=== PATIENT | female | born 1940 | race Caucasian/White ===

== ENCOUNTER 2017-11-21 09:55 | Emergency (ER) | payer OTHER ==
[~2017-11-21] VITALS: Ht 149.9 cm; Wt 60.8 kg
[2017-11-21 12:50] VITALS: BP 115/56
--- NOTE | 2017-11-21 13:19 | ED GENERAL ADULT ---
History of Present Illness General Chief Complaint: Chest Pain Stated Complaint: CHEST PAIN Source: patient Exam Limitations: no limitations Vital Signs & Intake/Output Vital Signs & Intake/Output Vital Signs Date Time Temp Pulse Resp B/P B/P Pulse O2 O2 Flow FiO2 Mean Ox Delivery Rate 11/21 1250 97.6 71 16 115/56 98 Room Air Room Air 11/21 1014 96.3 60 16 138/76 97 Room Air Allergies Coded Allergies: Penicillins (Intermediate, RASH 11/21/17) lisinopril (Intermediate, COUGH 11/21/17) Reconcile Medications Alendronate Sodium 70 MG TABLET 1 TAB PO Sa BONE (Reported) in the morning, at least 30 minutes before the first food, beverage, or medication of the day Famotidine (Pepcid) 20 MG TABLET 1 TAB PO BID epigastric pain Losartan Potassium 100 MG TABLET 1 TAB PO DAILY HEART (Reported) Metoprolol Succinate 100 MG TAB.ER.24H 1 TAB PO DAILY HEART (Reported) Naproxen (Naprosyn) 500 MG TABLET 1 TAB PO BID PRN body aches Ondansetron (Zofran Odt) 4 MG TAB.RAPDIS 1 TAB SL TID PRN nausea Simvastatin (Simvastatin*) 20 MG TABLET 1 TAB PO QPM CHOLESTEROL (Reported) Triage Note: PT TO ER C/C 2 DAY HX OF "ALL OVER" BODY PAIN, INCLUDING HEADACHES AND JOINT PAIN. DENIES CHEST PAIN OR SOB. + "EXCESSIVE GAS" UNRELIEVED BY TUMS. EKG COMPLETE AT TRIAGE AND SHOWN TO DR. ANDUJAR Triage Nurses Notes Reviewed? yes Onset: Gradual Duration: day(s): Timing: constant HPI: 77 y/o female with h/o HTN, HLD, OA presenting with mylagias and arthralgias x2 days. Reports she feels "achey all over and run down." Also with intermittent epigastric discomfort, indigestion, and nausea. Able to tolerate liquid po intake, but feels nausoues with all solid po intake, no vomiting. Denies fevers, rash, insect bites, CP, SOB, diarrhea, melena, bloody stools, dysuria. No sick contacts or recent trael. Reports she had a similar episode 2 years ago, was given a white pill by [facility] that resolved all her symptoms, but is unable to recall the name. (Harini Teresita MALONEY) Past History Travel History Traveled to [place] past 21 day No Medical History Any Pertinent Medical History? see below for history Cardiovascular: hypertension, hyperlipidemia Surgical History Surgical History: non-contributory Psychosocial History What is your primary language Chilean Tobacco Use: Never used Family History Hx Contributory? No (Teresita Lai) Review of Systems Review of Systems Constitutional: Reports: no symptoms. EENTM: Reports: no symptoms. Respiratory: Reports: no symptoms. Cardiovascular: Reports: no symptoms. GI: Reports: abdominal pain, nausea. Denies: bloating, constipation, diarrhea, melena, bloody stool, vomiting. Genitourinary: Reports: no symptoms. Musculoskeletal: Reports: see HPI, joint pain, muscle pain. Denies: joint swelling, muscle stiffness. Skin: Reports: no symptoms. Neurological/Psychological: Reports: no symptoms. Hematologic/Endocrine: Reports: no symptoms. Immunologic/Allergic: Reports: no symptoms. (Teresita Lai) Physical Exam Physical Exam General Appearance: well developed/nourished, no apparent distress, alert, awake , comfortable Head: atraumatic, normal appearance Eyes: Bilateral: normal appearance. Ears, Nose, Throat: normal ENT inspection Neck: normal inspection, supple Respiratory: normal breath sounds, chest non-tender, lungs clear Cardiovascular: regular rate/rhythm Gastrointestinal: soft, non-tender Back: normal inspection Extremities: normal inspection, normal range of motion, no reproducible tenderness Neurologic/Psych: no motor/sensory deficits, awake, alert, oriented x 3, normal gait, normal mood/affect Skin: intact, normal color, warm/dry, no rashes Core Measures ACS in differential dx? Yes CVA/TIA Diagnosis: No Sepsis Present: No Sepsis Focused Exam Completed? No (Treesita Lai) Progress Differential Diagnoses I considered the following diagnoses in my evaluation of the patient: [Viral syndrome vs infection vs metabolic derangement vs thyroid imbalance vs lyme vs OA vs ACS] Plan of Care: Orders Procedure Date/time Status Add-on Test (ER Only) 11/21 1447 Active Add-on Test (ER Only) 11/21 1345 Active TSH REFLEX 11/21 1320 Complete MAGNESIUM 11/21 1320 Complete LIPASE 11/21 1320 Complete TROPONIN LEVEL 11/21 1015 Complete LYME TITRE 11/21 1015 Active COMPREHENSIVE METABOLIC PANEL 11/21 1015 Complete CBC WITHOUT DIFFERENTIAL 11/21 1015 Complete EKG 11/21 0958 Active Laboratory Tests 11/21/17 1320: Anion Gap 15, Estimated GFR > 60, BUN/Creatinine Ratio 23.3, Glucose 108 H, Calcium 10.5 H, Magnesium 2.0, Total Bilirubin 0.6, AST 16, ALT 20, Alkaline Phosphatase 75, Troponin I < 0.01, Total Protein 7.3, Albumin 4.9, Globulin 2.4, Albumin/Globulin Ratio 2.0, Lipase 174, TSH &T3 &Free T4 Intrp 1.280, CBC w Diff NO MAN DIFF REQ, RBC 4.58, MCV 96.3, MCH 31.3 H, MCHC 32.5 L, RDW 13.4, MPV 8.8, Gran % 60.6, Lymphocytes % 27.5, Monocytes % 8.2, Eosinophils % 2.6, Basophils % 1.1, Absolute Granulocytes 6.2, Absolute Lymphocytes 2.8, Absolute Monocytes 0.8 H, Absolute Eosinophils 0.3, Absolute Basophils 0.1 11/21/17 1015: Lyme Disease Antibody Pending EKG is non-ischmeic, trop neg. Labs unremarkable. Pt reports body aches have resolved after toradol. Possibly that the body aches are from her underlying OA, low concern for infectious etiology. Lyme titer pending, but not given empiric tx was concern is low, no fevers, rash, insect bites. Epigastric pain and nausea improved after zofran and GI cocktail. Able to tolerate solid po intake in ED. Likely gastritis vs GERD vs PUD. Given rx pepcid, zofran, and naproxen. Counseled to take naproxen with food to prevent worsening epigastric pain. Has appt to f/u with PMD in a week. Given strict return precautions. Disccused with Dr. Andujar. Initial ED EKG: rhythm (sinus), rate (61), RBBB (Harini MALONEY,Teresita) Departure Departure Disposition: HOME OR SELF CARE Condition: Stable Clinical Impression Primary Impression: Epigastric pain Secondary Impressions: Arthralgia, Myalgia, Nausea Referrals: Kirill MOTLEY,Augie Shay (PCP/Family) Additional Instructions: Take pepcid, zofran, and naproxen as prescribed. Be sure to take naproxen with food to prevent worsening of your abdominal pain. Maintain adequate fluid intake and eat small meals as tolerable. Follow up with your primary care provider as scheduled. Return to the emergency department for any new or worsening symptoms. Departure Forms: Customer Survey General Discharge Information Prescriptions: Current Visit Scripts Ondansetron (Zofran Odt) 1 TAB SL TID PRN nausea #20 TAB Famotidine (Pepcid) 1 TAB PO BID #60 TAB Naproxen (Naprosyn) 1 TAB PO BID PRN body aches #60 TAB (Teresita Lai) PA/DIRECTOR PRIVATE Co-Sign Statement Statement: ED Attending supervision documentation- [] I saw and evaluated the patient. I have also reviewed all the pertinent lab results and diagnostic results. I agree with the findings and the plan of care as documented in the PA's/DIRECTOR PRIVATE's documentation. [X] I have reviewed the ED Record and agree with the PA's/DIRECTOR PRIVATE's documentation. [] Additions or exceptions (if any) to the PAs/DIRECTOR PRIVATE's note and plan are summarized below: [] (Jaime Andujar DO) Critical Care Note Critical Care Note Critical Care Time: non-applicable (Teresita Lai)
[2017-11-21 13:31] LABS: ABSOLUTE BASOPHIL COUNT 0.1 /CUMM (0.0-0.2); ABSOLUTE EOSINOPHIL COUNT 0.3 /CUMM (0.0-0.7); ABSOLUTE GRANULOCYTE CT 6.2 /CUMM (1.4-6.5); ABSOLUTE LYMPH COUNT 2.8 /CUMM (1.2-3.4); ABSOLUTE MONOCYTE COUNT 0.8 /CUMM (0.10-0.60); BASOPHIL % 1.1 % (0.0-2.0); EOSINOPHIL % 2.6 % (0-5); GRANULOCYTE % 60.6 % (42.2-75.2); HEMATOCRIT 44.1 % (37-47); MEAN CORPUSCULAR HGB 31.3 PG (27.0-31.0); MEAN CORPUSCULAR HGB CONC 32.5 G/DL (33.0-37.0); MEAN CORPUSCULAR VOLUME 96.3 FL (81.0-99.0); MEAN PLATELET VOLUME 8.8 FL (7.4-10.4); PLATELET COUNT 368 /CUMM (130-400); RBC DISTRIBUTION WIDTH 13.4 % (11.5-14.5); RED BLOOD CELL CT 4.58 /CUMM (4.20-5.40); WHITE BLOOD CELL COUNT 10.3 /CUMM (4.8-10.8)
[2017-11-21] MEDS ORDERED: ALENDRONATE SOD70 M2 PO (14:54)
[2017-11-21] MEDS ORDERED: METOPROLOL SUC100 M2 PO (14:55)
[2017-11-21] MEDS ORDERED: LOSARTAN POTAS100 M1 PO (14:55)
[2017-11-21] MEDS ORDERED: SIMVASTATIN20 M2 PO (14:55)
[2017-11-21] MEDS ORDERED: PEPCID20 M1 PO (15:36)
[2017-11-21] MEDS ORDERED: NAPROSYN500 M1 PO (15:36)
[2017-11-21] MEDS ORDERED: ZOFRAN ODT4 M1 SL (15:36)
== END 2017-11-21 16:04 ==
LOC: ERH 09:55
PROVIDERS: Physician Assistant Medical
DX: R10.13 Epigastric pain (principal); M79.1 Myalgia; M25.50 Pain in unspecified joint; R11.0 Nausea
CPT/HCPCS: 86618; 93005; 93010; 96372; J1885; J3101

== ENCOUNTER 2017-11-23 23:04 | Emergency (ER) | payer OTHER ==
[~2017-11-23] VITALS: Ht 149.9 cm; Wt 59.9 kg
[~2017-11-23 23:04] MED LIST: ALENDRONATE SOD70 M2 PO; LOSARTAN POTAS100 M1 PO; METOPROLOL SUC100 M2 PO; NAPROSYN500 M1 PO; PEPCID20 M1 PO; SIMVASTATIN20 M2 PO; ZOFRAN ODT4 M1 SL
--- NOTE | 2017-11-23 23:47 | ED GENERAL ADULT ---
History of Present Illness General Chief Complaint: General Adult Stated Complaint: PT IS PROBLEM BREATHING,HAS PAIN ALL OVER Source: patient, family, old records Exam Limitations: no limitations Vital Signs & Intake/Output Vital Signs & Intake/Output Vital Signs Date Time Temp Pulse Resp B/P B/P Pulse O2 O2 Flow FiO2 Mean Ox Delivery Rate 11/23 2327 Room Air 11/23 2319 97.1 64 18 156/73 94 ED Intake and Output 11/24 0000 11/23 1200 Intake Total Output Total Balance Patient 132 lb Weight Weight Reported by Patient Measurement Method Allergies Coded Allergies: Penicillins (Intermediate, RASH 11/21/17) lisinopril (Intermediate, COUGH 11/21/17) Reconcile Medications Alendronate Sodium 70 MG TABLET 1 TAB PO Sa BONE (Reported) in the morning, at least 30 minutes before the first food, beverage, or medication of the day Famotidine (Pepcid) 20 MG TABLET 1 TAB PO BID epigastric pain Losartan Potassium 100 MG TABLET 1 TAB PO DAILY HEART (Reported) Metoprolol Succinate 100 MG TAB.ER.24H 1 TAB PO DAILY HEART (Reported) Naproxen (Naprosyn) 500 MG TABLET 1 TAB PO BID PRN body aches Ondansetron (Zofran Odt) 4 MG TAB.RAPDIS 1 TAB SL TID PRN nausea Simvastatin (Simvastatin*) 20 MG TABLET 1 TAB PO QPM CHOLESTEROL (Reported) Triage Note: PT PRESENTS TO THE ER C/O PAIN ALL OVER HER BODY.. PT STATES MY CHEST FEELS LIKE IT IS GONNA EXPLODE. PT STATES HER CHEST PAIN IS A 10/10 AND RADIATES TO HER BACK.. PT WAS SEEN HERE 2 DAYS AGO AND WAS TOLD TO COME BACK IF NOT BETTER. PT STATES THAT IT HURTS WHEN SHE BREATHS IN.. Triage Nurses Notes Reviewed? yes Onset: Last week Duration: day(s):, constant, continues in ED Timing: recent history Injury Environment: home Severity: moderate No Modifying Factors: none Associated Symptoms: cough LMP (ages 10-50): post menopausal : No Patient currently breastfeeds: No HPI: 5 days prior to admission patient complains of generalized body pain worse with recumbency. She also complains of nonproductive cough causing chest pain. She was evaluated and prescribed anti-emetic and NSAID. She denies fever chills nausea vomiting diarrhea shortness of breath headache dysuria rash bleeding. Past History Travel History Traveled to [place] past 21 day No Medical History Any Pertinent Medical History? see below for history Cardiovascular: hypertension, hyperlipidemia Surgical History Surgical History: non-contributory Psychosocial History What is your primary language Mauritanian Tobacco Use: Never used Family History Hx Contributory? No Review of Systems Review of Systems Constitutional: Reports: see HPI, malaise. EENTM: Reports: no symptoms. Respiratory: Reports: see HPI, cough. Denies: sputum production. Cardiovascular: Reports: no symptoms. GI: Reports: no symptoms. Genitourinary: Reports: no symptoms. Musculoskeletal: Reports: see HPI, joint pain, muscle pain. Skin: Reports: no symptoms. Neurological/Psychological: Reports: no symptoms. Hematologic/Endocrine: Reports: no symptoms. Immunologic/Allergic: Reports: no symptoms. All Other Systems: Reviewed and Negative Physical Exam Physical Exam General Appearance: well developed/nourished, alert, awake, anxious, mild distress Head: atraumatic, normal appearance Eyes: Bilateral: normal appearance, PERRL, EOMI. Ears, Nose, Throat: normal pharynx, normal ENT inspection, hearing grossly normal Neck: normal inspection, supple, full range of motion, no midline tenderness Respiratory: normal breath sounds, chest non-tender, no respiratory distress, quiet respiration, lungs clear Cardiovascular: regular rate/rhythm, normal peripheral pulses, norml femoral pulses equa Peripheral Pulses: 4+ carotid (R), 4+ carotid (L) Gastrointestinal: normal bowel sounds, soft, non-tender, no organomegaly Core Measures ACS in differential dx? No CVA/TIA Diagnosis: No Sepsis Present: No Sepsis Focused Exam Completed? No Progress Differential Diagnoses I considered the following diagnoses in my evaluation of the patient: Adverse drug reaction viral syndrome electrolyte abnormality PE pneumonia Plan of Care: Orders Procedure Date/time Status TOTAL TRIODOTHYROXINE 11/23 2346 Complete FREE T4 11/23 2346 Complete URINALYSIS 11/23 234 Complete TSH REFLEX 11/23 234 Complete TROPONIN LEVEL 11/23 234 Complete MAGNESIUM 11/23 234 Complete LIPASE 11/23 234 Complete HIGH SENSITIVITY CRP 11/23 234 Complete D-DIMER 11/23 234 Complete COMPREHENSIVE METABOLIC PANEL 11/23 234 Complete CREATINE PHOSPHOKINASE 11/23 234 Complete CBC WITHOUT DIFFERENTIAL 11/24 2343 Complete EKG 11/23 2323 Active Laboratory Tests 11/24/17 0109: Urine Color STRAW, Urine Clarity CLEAR, Urine pH 6.0, Ur Specific [place] <= 1.005, Urine Protein NEG, Urine Ketones NEG, Urine Nitrite NEG, Urine Bilirubin NEG, Urine Urobilinogen 0.2, Ur Leukocyte Esterase TRACE H, Ur Microscopic SEDIMENT EXAMINED, Urine RBC 1-3, Urine WBC 3-5 H, Ur Epithelial Cells RARE, Urine Bacteria RARE H, Urine Mucus FEW, Urine Hemoglobin NEG, Urine Glucose NEG 11/23/17 2346: Anion Gap 14, Estimated GFR 54 L, BUN/Creatinine Ratio 29.0 H, Glucose 115 H, Calcium 10.5 H, Magnesium 2.4 H, Total Bilirubin 0.4, AST 15, ALT 20, Alkaline Phosphatase 91, Creatine Kinase 80, Troponin I < 0.01, C-React Prot High Sens 2.7, Total Protein 7.6, Albumin 4.7, Globulin 2.9, Albumin/Globulin Ratio 1.6, Lipase 258, Free T4 0.82, Total T3 1.23, TSH &T3 &Free T4 Intrp 4.370 H, D- Dimer High Sensitivty 301 H, CBC w Diff NO MAN DIFF REQ, RBC 4.54, MCV 95.8, MCH 31.7 H, MCHC 33.1, RDW 12.9, MPV 9.0, Gran % 46.8, Lymphocytes % 40.2, Monocytes % 9.3, Eosinophils % 3.0, Basophils % 0.7, Absolute Granulocytes 4.0, Absolute Lymphocytes 3.4, Absolute Monocytes 0.8 H, Absolute Eosinophils 0.3, Absolute Basophils 0.1 Diagnostic Imaging: Viewed by Me: Radiology Read. Discussed w/RAD: Radiology Read. Radiology Impression: 1. No pulmonary embolism. 2. Mild paraseptal emphysema. 3. Interlobular septal thickening in the upper lobes with scattered groundglass opacities. Mild interstitial edema is possible. 4. T4 vertebral body compression deformity of uncertain chronicity. Status post kyphoplasty at the T9 and T10 levels. VTE: negative CXR Impression: no acute abnormality Initial ED EKG: normal intervals, normal p-waves, normal sinus rhythm, RBBB, nonspecific ST T wave chg Prior EKG: unchanged Rhythm Strip: normal sinus rhythm Departure Departure Time of Disposition: 234 Disposition: HOME OR SELF CARE Condition: Stable Clinical Impression Primary Impression: Myalgia due to statin Referrals: Alcedo MD,Augie Shay (PCP/Family) Additional Instructions: Stop simvastatin and call your doctor for substitution. Departure Forms: Customer Survey General Discharge Information Critical Care Note Critical Care Note Critical Care Time: non-applicable
[2017-11-23 23:54] LABS: ABSOLUTE BASOPHIL COUNT 0.1 /CUMM (0.0-0.2); ABSOLUTE EOSINOPHIL COUNT 0.3 /CUMM (0.0-0.7); ABSOLUTE LYMPH COUNT 3.4 /CUMM (1.2-3.4); ABSOLUTE MONOCYTE COUNT 0.8 /CUMM (0.10-0.60); BASOPHIL % 0.7 % (0.0-2.0); GRANULOCYTE % 46.8 % (42.2-75.2); HEMATOCRIT 43.5 % (37-47); MEAN CORPUSCULAR HGB 31.7 PG (27.0-31.0); MEAN CORPUSCULAR HGB CONC 33.1 G/DL (33.0-37.0); MEAN CORPUSCULAR VOLUME 95.8 FL (81.0-99.0); PLATELET COUNT 378 /CUMM (130-400); RBC DISTRIBUTION WIDTH 12.9 % (11.5-14.5); RED BLOOD CELL CT 4.54 /CUMM (4.20-5.40); WHITE BLOOD CELL COUNT 8.6 /CUMM (4.8-10.8)
--- NOTE | 2017-11-24 00:11 | RADIOLOGY REPORT ---
EXAMINATION: XR CHEST CLINICAL INFORMATION: Cough. Myalgia. COMPARISON: None TECHNIQUE: 2 views of the chest were obtained. FINDINGS: The lungs are well expanded. There is no focal consolidation, edema, or effusion. No pneumothorax. The cardiomediastinal silhouette is within normal limits of size with a calcified aorta. No acute osseous abnormality. Kyphoplasty cement seen at 2 levels of the lower thoracic spine. IMPRESSION: No acute pulmonary finding.
--- NOTE | 2017-11-24 02:20 | CT SCAN REPORT ---
EXAMINATION: CT ANGIOGRAM OF THE CHEST WITH AND WITHOUT CONTRAST (CT PULMONARY ANGIOGRAM FOR PE) CLINICAL INFORMATION: Cough. Chest pain. COMPARISON: Chest radiograph from 11/23/2017 TECHNIQUE: Prior to contrast administration, noncontrast localization images were obtained. Subsequently, multidetector volumetric imaging was performed from the thoracic inlet to below the diaphragms following the administration of 65 mL Optiray 320 intravenous contrast. No contrast reaction reported. Sagittal, coronal, and MIP oblique sagittal reformatted images were obtained on the CT workstation, uploaded to PACS, and reviewed. Total exam dose-length product 246 mGy-cm. FINDINGS: QUALITY OF STUDY/CONTRAST BOLUS: Satisfactory PULMONARY ARTERIES: No central or segmental pulmonary emboli. THORACIC AORTA: No aneurysm or dissection. Moderate atherosclerotic calcifications. LUNG: The central airways are patent. Scattered paraseptal emphysema noted. Interlobular septal thickening seen in the upper lobes with scattered groundglass opacity. No dense consolidation. PLEURA: No pleural effusion or pneumothorax. MEDIASTINUM: The heart is mildly enlarged. No pericardial effusion. Coronary artery calcifications are present. No mediastinal lymphadenopathy. No evidence of septal bowing or right heart strain. CHEST WALL/AXILLA: No axillary or internal mammary lymphadenopathy. OSSEOUS STRUCTURES: No acute or suspicious osseous abnormality. Kyphoplasty at the T9 and T10 vertebral bodies. There is a compression deformity of the T4 vertebral body. This is of uncertain chronicity. UPPER ABDOMEN: Unremarkable. No reflux of contrast into the hepatic veins to suggest elevated right heart pressures. IMPRESSION: 1. No pulmonary embolism. 2. Mild paraseptal emphysema. 3. Interlobular septal thickening in the upper lobes with scattered groundglass opacities. Mild interstitial edema is possible. 4. T4 vertebral body compression deformity of uncertain chronicity. Status post kyphoplasty at the T9 and T10 levels. VTE: negative
[2017-11-24 02:41] VITALS: BP 168/92
== END 2017-11-24 02:44 ==
LOC: ERH 23:04
PROVIDERS: Emergency Medicine
DX: M79.1 Myalgia (principal); R07.9 Chest pain, unspecified
CPT/HCPCS: 71046; 81001; 93005; 93010; 96361; 96374; J0131